=== PATIENT | female | born 1975 | race Caucasian/White ===

== ENCOUNTER 2016-10-11 15:31 | Emergency (ER) | payer SELFPAY ==
[~2016-10-11] VITALS: Ht 180.3 cm; Wt 104.3 kg
[~2016-10-11 15:31] MED LIST: ADDERALL20 MG PO; ASPIRIN ADULT L81 M2 PO; ATIVAN0.5 MG PO; ATIVAN1 MG PO; BACTRIM DS 8001 TA1 PO; CELEXA20 MG PO; CIPRO500 MG PO; CIPROFLOXACIN500 MG PO; CLARITIN10 MG PO; DOXYCYCLINE100 MG PO; IMDUR SA30 MG PO; MOTRIN800 MG PO; NKHM; NORVASC10 MG PO; PREV ADMIT HOME MEDS; PROTONIX TR40 M1 PO; PYRIDIUM200 MG PO; SEPTRA DS1 TAB PO; ULTRAM50 MG PO; ZESTRIL10 MG PO; ZITHROMAX Z PA250 MG PO; Zestril,Prinivi40 MG PO; [UNRECOGNIZED DRUG - REMARK] PO
[2016-10-11 16:11] LABS: BILIRUBIN NEGATIVE (NEGATIVE); BLOOD 3+ (NEGATIVE); CLARITY SL CLOUDY (CLEAR); COLOR YELLOW (YELLOW); GLUCOSE NEGATIVE (NEGATIVE); KETONE NEGATIVE (NEGATIVE); LEUKO ESTERASE 1+ (NEGATIVE); NITRITE NEGATIVE (NEGATIVE); PH 5.5 (5.0-9.0); PROTEIN 1+ (NEGATIVE); SPECIFIC GRAVITY 1.025 (1.005-1.030); UROBILINOGEN 0.2 E.U./dl (0.2-1.0)
[2016-10-11 16:16] LABS: BASO % 0.2 % (0.0-1.0); EOS # 0.1 10*3/uL (0.0-0.4); EOS % 1.9 % (1.0-4.0); HEMATOCRIT 45.1 % (37.0-47.0); HEMOGLOBIN 16.1 g/dl (12.0-16.0); LYMPH # 1.4 10*3/uL (1.3-4.4); LYMPH % 32.1 % (27.0-41.0); MEAN CELL VOLUME 86.4 fl (81.0-99.0); MEAN CORPUSCULAR HGB 30.8 pg (27.0-31.0); MEAN CORPUSCULAR HGB CONC 35.7 g/dl (33.0-37.0); MEAN PLATELET VOLUME 8.2 fl (9.6-12.3); MONO # 0.3 10*3/uL (0.1-1.0); MONO % 7.9 % (3.0-9.0); NEUT # 2.4 10*3/uL (2.3-7.9); NEUT % 57.7 % (47.0-73.0); PLATELET COUNT AUTOMATED 206 10*3/uL (130-400); RED BLOOD COUNT 5.22 10*6/uL (4.10-5.10); RED CELL DISTRI WIDTH 12.4 % (0-14.5); WHITE BLOOD COUNT 4.2 10*3/uL (4.8-10.8)
[2016-10-11 16:26] LABS: BACTERIA 2+; EPITHELIAL CELLS 20-25; MUCOUS TRACE; URINE REFLEX COMMENT YES (NO); WBC 21-30 wbc/hpf (0-5)
[2016-10-11 16:34] LABS: ALBUMIN 3.5 gm/dl (3.1-4.5); ALKALINE PHOSPHATASE 62 U/L (45-117); BILIRUBIN, TOTAL 0.4 mg/dl (0.2-1.0); BUN 21 mg/dl (7-24); CARBON DIOXIDE 28 mmol/L (21-32); CHLORIDE 107 mmol/L (98-107); EST GLOM FILT AFRICAN AMERICAN > 60 ml/min; GLUCOSE 86 mg/dL (65-99); POTASSIUM 3.8 mmol/L (3.5-5.1); SGOT/AST 61 IU/L (3-35); SGPT/ALT 75 U/L (12-78); SODIUM 143 mmol/L (136-145); TOTAL PROTEIN 7.5 gm/dL (6.4-8.2)
[2016-10-11 16:54] LABS: URINE AMPHETAMINES < 1000 (1000ng/ml); URINE BARBITURATES < 200 (200ng/ml); URINE COCAINE > 300 (300ng/ml)
[2016-10-11] MEDS ORDERED: XANAX0.25 MG PO (17:53)
[2016-10-11] MEDS ORDERED: KETOROLAC10 MG PO (17:53)
[2016-10-11] MEDS ORDERED: MACROBID100 M1 PO (17:56)
== END 2016-10-11 17:56 | disposition home or self-care (01) ==
LOC: ED 15:31
PROVIDERS: Registered Nurse
DX: N30.01 Acute cystitis with hematuria (principal); N83.201 Unspecified ovarian cyst, right side; Q61.3 Polycystic kidney, unspecified; I10 Essential (primary) hypertension; Z98.51 Tubal ligation status; Z98.890 Other specified postprocedural states; Z88.0 Allergy status to penicillin; Z79.899 Other long term (current) drug therapy; Z86.73 Personal history of transient ischemic attack (TIA), and cerebral infarction without residual deficits

== ENCOUNTER 2018-09-04 16:51 | Inpatient (IN) | payer SELFPAY ==
[~2018-09-04] VITALS: Ht 180.3 cm; Wt 108.2 kg
--- NOTE | ~2018-09-04 | EKG ---
[place], [place] ELECTROCARDIOGRAM REPORT NAME: JING MANUEL UNIT #: [id number] ROOM: 412 DOCTOR: KELLEN DRAFT REPORT BIRTHDATE: [birth year] [facility] Test Date: 2018-09-04 Test Time: 17:38:07 Pat Name: JING MANUEL Department: Room: 412 Gender: F Meat Trimmer: Mile Gonzalez : 1975 Requested By: MATTHEW COUCH Order Number: [id number] Reading MD: Radha Santiago MD Measurements Intervals [place] Rate: 106 P: 42 [place]: 171 QRS: -5 QRSD: 88 T: 8 QT: 336 QTc: 447 Interpretive Statements Sinus tachycardia Anteroseptal infarct, age indeterminate Compared to ECG 12/26/2017 14:16:35 Sinus rhythm no longer present Myocardial infarct finding still present Electronically Signed On 09-05-2018 7:06:32 PDT by Radha Santiago MD CM:EKGRPT:ELECTROCARDIOGRAM REPORT [id number] MATTHEW EL DRAFT REPORT MATTHEW COUCH DO
[~2018-09-04 16:51] MED LIST changes: +CLINDAMYCIN HC300 MG PO; +KETOROLAC10 MG PO; +MACROBID100 M1 PO; +VITAMIN D50000 UNIT PO; +XANAX0.25 MG PO; +XARE20MG PO
[2018-09-04 16:53] VITALS: BP 189/127
[2018-09-04 17:15] VITALS: BP 151/92
[2018-09-04 17:52] LABS: ACT PARTIAL THROMBO TIME 22.8 SECONDS (20.8-31.5); INTERNATIONAL NORM RATIO 0.9 (2.0-3.5)
[2018-09-04 17:58] LABS: ALBUMIN 3.6 gm/dl (3.1-4.5); ALKALINE PHOSPHATASE 58 U/L (45-117); BUN 9 mg/dl (7-24); CHLORIDE 110 mmol/L (98-107); CREATININE 0.79 mg/dL (0.55-1.02); LIPASE 310 U/L (73-393); POTASSIUM 3.3 mmol/L (3.5-5.1); SGOT/AST 47 IU/L (3-35); SGPT/ALT 45 U/L (12-78); SODIUM 142 mmol/L (136-145); TOTAL PROTEIN 7.4 gm/dL (6.4-8.2)
[2018-09-04 18:01] LABS: BASO % 0.6 % (0.0-1.0); EOS # 0.5 10*3/uL (0.0-0.4); EOS % 8.8 % (1.0-4.0); HEMOGLOBIN 16.4 g/dl (12.0-16.0); LYMPH # 1.5 10*3/uL (1.3-4.4); LYMPH % 27.4 % (27.0-41.0); MEAN CELL VOLUME 84.9 fl (81.0-99.0); MEAN CORPUSCULAR HGB 30.9 pg (27.0-31.0); MEAN CORPUSCULAR HGB CONC 36.4 g/dl (33.0-37.0); MEAN PLATELET VOLUME 8.6 fl (9.6-12.3); MONO # 0.5 10*3/uL (0.1-1.0); MONO % 8.5 % (3.0-9.0); NEUT % 54.1 % (47.0-73.0); PLATELET COUNT AUTOMATED 234 10*3/uL (130-400); RED CELL DISTRI WIDTH 12.5 % (0-14.5); WHITE BLOOD COUNT 5.4 10*3/uL (4.8-10.8)
[2018-09-04 18:04] LABS: BETA-HCG, QUANT < 1.0 mIU/mL (1-3)
--- NOTE | 2018-09-04 18:07 | NUR ---
ETOH RESULT OF 375.
[2018-09-04 18:24] VITALS: BP 151/105
--- NOTE | 2018-09-04 18:45 | NUR ---
PHONE NUMBER FOR PARENT LASHA/ [phone]. WANTS CALLED FOR ANY CONCERN. DEEDEE GOLDSMITH RN.
[2018-09-04 18:50] LABS: BILIRUBIN NEGATIVE (NEGATIVE); BLOOD TRACE-INTACT (NEGATIVE); CLARITY CLEAR (CLEAR); COLOR STRAW (YELLOW); GLUCOSE NEGATIVE (NEGATIVE); KETONE NEGATIVE (NEGATIVE); LEUKO ESTERASE NEGATIVE (NEGATIVE); NITRITE NEGATIVE (NEGATIVE); PH 5.5 (5.0-9.0); SPECIFIC GRAVITY <= 1.005 (1.005-1.030); UROBILINOGEN 0.2 E.U./dl (0.2-1.0)
[2018-09-04 19:01] LABS: URINE AMPHETAMINES < 1000 (1000ng/ml); URINE BARBITURATES < 200 (200ng/ml); URINE BENZODIAZEPINES < 200 (200ng/ml); URINE CANNABINOIDS (THC) < 50 (50ng/ml); URINE COCAINE < 300 (300ng/ml); URINE METHADONE < 300 (300ng/ml); URINE OPIATES < 300 (300ng/ml); URINE PHENCYCLIDINE < 25 (25ng/ml)
[2018-09-04 19:08] LABS: BACTERIA TRACE
[2018-09-04 20:13] VITALS: BP 170/82
--- NOTE | 2018-09-04 20:13 | NUR ---
A 43, admitted to , under the services of BERNARDINO Villalobos DO with a diagnosis of ALCOOHOL DEPENDANCE ALCOHOL WITHDRAWAL. Chief complaint is WANTS TO BE IN [facility] V[facility] PROGRAM. Patient arrived via stretcher from ER. Monitor applied. Initial assessment completed. Vital signs taken and recorded. BERNARDINO VILLALOBOS DO notified of admission to the unit. Orders received. See assessment for past medical history, medications and allergies. Patient and/or family oriented to unit. [facility] visitation policy reviewed. Clothing/patient valuable form completed. DESEAN HERNANDEZ
[2018-09-05] VITALS: BP 162/108
--- NOTE | 2018-09-05 01:00 | NUR ---
NOTIFIED DR. BANDA MANUAL BP162/108 WATCHING PATIENT. NO FURTHER ORDERS.
--- NOTE | 2018-09-05 01:24 | NUR ---
PT. VISIBLY TREMORING, LIPS QUIVERING PT. VERY ANXIOUS ALMOST CRYING. C/O HEADACHE MOTRIN GIVEN FOR PAIN RATED "9", ROBAIXN GIVEN FOR MUSCLE ACHES, VISTARIL GIVEN FOR ANXIETY, ATIVAN GIVEN PER ORDER FOR DVT SYMPTOMS.
--- NOTE | 2018-09-05 02:20 | NUR ---
PT. SLEEPING SNORING NO VISIBLE TREMORS AT THIS TIME.
--- NOTE | 2018-09-05 03:37 | NUR ---
24 HR chart check completed.
[2018-09-05 06:25] VITALS: BP 160/108
--- NOTE | 2018-09-05 06:30 | NUR ---
NOTIFIED OF PATIENT STILL HAVING ELEVATED BP AND NO NEW ORDERS AT THIS TIME.
[2018-09-05 06:35] LABS: BUN 12 mg/dl (7-24); CHLORIDE 113 mmol/L (98-107); CREATININE 0.76 mg/dL (0.55-1.02); POTASSIUM 3.8 mmol/L (3.5-5.1); SODIUM 144 mmol/L (136-145)
[2018-09-05 08:00] VITALS: BP 168/110
--- NOTE | 2018-09-05 12:30 | NUR ---
PATIENT IS SHAKING. HEARTRATE IS INCREASING INTO THE 140S AT REST. ATIVAN 2MG IV GIVEN.
--- NOTE | 2018-09-05 13:30 | NUR ---
PATIENT SLEEPING. NO SIGNS OF SHAKING. HEARTRATE IS 110.
[2018-09-05 14:00] VITALS: BP 160/99
[2018-09-05 16:00] VITALS: BP 145/99
--- NOTE | 2018-09-05 18:35 | NUR ---
PATIENT COMPLAINING OF CHEST TIGHTNESS AND SHORTNESS OF BREATH. HEART RATE IN THE 130S. ATIVAN 2MG IV GIVEN FOR WITHDRAWL SYMPTOMS.
[2018-09-05 20:00] VITALS: BP 123/89
--- NOTE | 2018-09-05 23:37 | NUR ---
PATIENT MEDICATED WITH ATIVAN PER PRN ORDER AND PATIENT REQUEST FOR C/O ANXIETY, FINE TREMORS AND SWEATS. SEE EMAR. REINFORCED USE OF CALL LIGHT.
--- NOTE | 2018-09-05 23:41 | NUR ---
DR. SOSA UPDATED ON HR OF 106 AND MANUAL BP OF 140/100. WILL CONTINUE TO MONITOR.
[2018-09-06] VITALS: BP 140/100
[2018-09-06 02:00] VITALS: BP 134/78
--- NOTE | 2018-09-06 02:00 | NUR ---
PATIENT RESTING QUIETLY. NO S/S OF DISTRESS NOTED
--- NOTE | 2018-09-06 03:44 | NUR ---
24 HR chart check completed.
[2018-09-06 06:54] LABS: BUN 19 mg/dl (7-24); CHLORIDE 107 mmol/L (98-107); CREATININE 0.74 mg/dL (0.55-1.02); POTASSIUM 3.6 mmol/L (3.5-5.1); SODIUM 140 mmol/L (136-145)
[2018-09-06 08:00] VITALS: BP 122/90
--- NOTE | 2018-09-06 09:49 | NUR ---
24 HR chart check completed.
--- NOTE | 2018-09-06 10:14 | NUR ---
PRN ATIVAN GIVEN FOR ANXIETY. PATIENT TEARFUL.
--- NOTE | 2018-09-06 11:00 | NUR ---
DENIES ANXIETY. ATIVAN EFFECTIVE.
--- NOTE | 2018-09-06 11:30 | NUR ---
SCHEDULED LIBRIUM GIVEN.
[2018-09-06 12:00] VITALS: BP 127/87; BP 130/64
--- NOTE | 2018-09-06 12:12 | NUR ---
NO SIGNS OF DT'S. LIBRIUM EFFECTIVE.
[2018-09-06 16:00] VITALS: BP 123/86
--- NOTE | 2018-09-06 17:06 | NUR ---
ATIVAN GIVEN FOR ANXIETY. PATIENT CRYING. FEELS LIKE SHE IS HAVING A PANIC ATTACK.
--- NOTE | 2018-09-06 17:45 | NUR ---
PATIENT STATES SHE FEELS MUCH BETTER AFTER ATIVAN.
[2018-09-06 20:00] VITALS: BP 124/87
--- NOTE | 2018-09-06 20:35 | NUR ---
MEDICATED WITH PRN ATIVAN FOR C/O ANXIOUSNESS AND TREMORS. WILL MONITOR
[2018-09-07] VITALS: BP 130/82
--- NOTE | 2018-09-07 01:00 | NUR ---
MEDICATED WITH PRN ATIVAN FOR C/O TREMORS AND ANXIOUSNESS. WILL MONITOR
--- NOTE | 2018-09-07 01:00 | NUR ---
IV started left hand with #22 angiocath after 1 attempts. The IV site was prepped with Chloraprep. Heparin lock attached. Sterile dressing applied. Patient tolerated precedure well. Procedure performed according to [facility] policy & procedure. BHARGAV PARK
--- NOTE | 2018-09-07 01:00 | NUR ---
Hep Lock discontinued RIGHT HAND. Site symptomatic, LEAKING AT SITE. Pressure applied. Sterile dressing applied. BHARGAV PARK
[2018-09-07 06:09] LABS: BASO % 0.4 % (0.0-1.0); EOS # 0.5 10*3/uL (0.0-0.4); EOS % 9.1 % (1.0-4.0); HEMATOCRIT 43.3 % (37.0-47.0); LYMPH # 1.2 10*3/uL (1.3-4.4); LYMPH % 22.3 % (27.0-41.0); MEAN CORPUSCULAR HGB 30.5 pg (27.0-31.0); MEAN CORPUSCULAR HGB CONC 34.6 g/dl (33.0-37.0); MEAN PLATELET VOLUME 8.9 fl (9.6-12.3); MONO # 0.3 10*3/uL (0.1-1.0); MONO % 6.1 % (3.0-9.0); NEUT # 3.3 10*3/uL (2.3-7.9); NEUT % 61.5 % (47.0-73.0); PLATELET COUNT AUTOMATED 158 10*3/uL (130-400); RED BLOOD COUNT 4.92 10*6/uL (4.10-5.10); RED CELL DISTRI WIDTH 12.6 % (0-14.5); WHITE BLOOD COUNT 5.4 10*3/uL (4.8-10.8)
[2018-09-07 08:00] VITALS: BP 110/70
--- NOTE | 2018-09-07 09:44 | NUR ---
MEDICATED WITH PRN ATIVAN PER ORDER AND REQUEST.
[2018-09-07 12:00] VITALS: BP 130/88
--- NOTE | 2018-09-07 12:50 | NUR ---
MEDICATED WITH PRN ATIVAN PER ORDER AND REQUEST.
--- NOTE | 2018-09-07 15:47 | NUR ---
MEDICATED WITH ATIVAN PER ORDER AND REQUEST.
[2018-09-07 16:00] VITALS: BP 127/99
--- NOTE | 2018-09-07 18:13 | NUR ---
MEDICATED WITH PRN VISTARIL AND ROBAXIN PER ORDERS.
--- NOTE | 2018-09-07 19:06 | NUR ---
ROBAXIN AND VISTARIL HELPED.
--- NOTE | 2018-09-07 19:33 | NUR ---
MEDICATED WITH PRN TRAZADONE FOR INSOMNIA AND PRN ATIVAN FOR C/O ANXIOUSNESS AND TREMORS. WILL MONITOR
[2018-09-07 20:00] VITALS: BP 136/96
--- NOTE | 2018-09-07 21:42 | NUR ---
PATIENT RESTING IN BED WITH EYES CLOSED. RESPS EASY AND REGULAR. MEDICATION SEEMS EFFECTIVE
[2018-09-08] VITALS: BP 124/94
--- NOTE | 2018-09-08 07:48 | NUR ---
MEDICATED WITH IV ATIVAN PER ORDER AND REQUEST.
[2018-09-08 08:00] VITALS: BP 104/76
--- NOTE | 2018-09-08 11:13 | NUR ---
[place] STAFF PROVIDED PATIENT WITH AFTERCARE RESOURCES IN HER LOCAL AREA. DUE TO NOT HAVING INSURANCE, PATIENT DOES NOT MEET [facility] CRITERIA. HUBER LORENZO B.A. BALE OPENER
--- NOTE | 2018-09-08 11:47 | NUR ---
MEDICATED WITH PRN VISTARIL PER ORDER.
[2018-09-08 12:00] VITALS: BP 126/95
--- NOTE | 2018-09-08 14:56 | NUR ---
EVELIO EARLIER HELPED.
[2018-09-08] MEDS ORDERED: ATARAX,VISTARIL50 MG PO (15:20)
[2018-09-08] MEDS ORDERED: LISINOPRIL10 M1 PO (15:20)
--- NOTE | 2018-09-08 15:30 | NUR ---
PATIENT TO GO HOME.
--- NOTE | 2018-09-08 15:52 | NUR ---
Discharge instructions reviewed with patient/family. Patient receptive and verbalizes understanding. Follow-up care arranged. Written instructions given to patient/family. JING LABOY
[2018-09-26] MEDS ORDERED: ATARAX,VISTARIL50 MG PO (00:39)
[2018-09-27] MEDS ORDERED: ATARAX,VISTARIL50 MG PO (12:51)
[2018-09-27] MEDS ORDERED: LISINOPRIL10 M1 PO (12:51)
== END 2018-09-08 15:52 | disposition home or self-care (01) | DRG 897 ==
LOC: ED 16:51 → EDHOLD 17:21 → 4E 17:21
PROVIDERS: Emergency Medicine; Student in an Organized Health Care Education/Training Program; ADMIT Internal Medicine
DX: F10.929 Alcohol use, unspecified with intoxication, unspecified (principal); R65.10 Systemic inflammatory response syndrome (SIRS) of non-infectious origin without acute organ dysfunction; Q61.3 Polycystic kidney, unspecified; D75.1 Secondary polycythemia; E87.6 Hypokalemia; E83.41 Hypermagnesemia; I10 Essential (primary) hypertension; B19.20 Unspecified viral hepatitis C without hepatic coma; R74.0 Nonspecific elevation of levels of transaminase and lactic acid dehydrogenase [LDH]; F17.210 Nicotine dependence, cigarettes, uncomplicated; F14.90 Cocaine use, unspecified, uncomplicated; F11.90 Opioid use, unspecified, uncomplicated; Z80.0 Family history of malignant neoplasm of digestive organs; Z88.0 Allergy status to penicillin; Z86.73 Personal history of transient ischemic attack (TIA), and cerebral infarction without residual deficits; I25.2 Old myocardial infarction; Z71.6 Tobacco abuse counseling; Z98.891 History of uterine scar from previous surgery; Z98.51 Tubal ligation status; Z72.89 Other problems related to lifestyle; Z82.49 Family history of ischemic heart disease and other diseases of the circulatory system; Z83.3 Family history of diabetes mellitus; Z82.3 Family history of stroke

== ENCOUNTER → 2018-09-12 | Outpatient (CLI) | payer SELFPAY ==
[~2018-09-12] MED LIST changes: +ATARAX,VISTARIL50 MG PO; +LISINOPRIL10 M1 PO
== END | disposition home or self-care (01) ==
LOC: RESCLI 03:26
DX: I10 Essential (primary) hypertension (principal); R00.0 Tachycardia, unspecified; F41.1 Generalized anxiety disorder; Q61.3 Polycystic kidney, unspecified; F10.10 Alcohol abuse, uncomplicated; B18.2 Chronic viral hepatitis C; F32.2 Major depressive disorder, single episode, severe without psychotic features; Z76.89 Persons encountering health services in other specified circumstances

== ENCOUNTER → 2019-03-23 | Outpatient (CLI) | payer OTHER ==
[2019-03-23 09:30] LABS: HEMATOCRIT 41.8 % (37.0-47.0); HEMOGLOBIN 14.8 g/dl (12.0-16.0); MEAN CELL VOLUME 86.9 fl (81.0-99.0); MEAN CORPUSCULAR HGB 30.8 pg (27.0-31.0); MEAN CORPUSCULAR HGB CONC 35.4 g/dl (33.0-37.0); MEAN PLATELET VOLUME 8.6 fl (9.6-12.3); RED BLOOD COUNT 4.81 10*6/uL (4.10-5.10); WHITE BLOOD COUNT 4.8 10*3/uL (4.8-10.8)
[2019-03-23 10:07] LABS: ALBUMIN 3.7 gm/dl (3.1-4.5); BUN 24 mg/dl (7-24); CHLORIDE 104 mmol/L (98-107); POTASSIUM 3.4 mmol/L (3.5-5.1); SODIUM 137 mmol/L (136-145)
[2019-03-23 10:20] LABS: ALKALINE PHOSPHATASE 67 U/L (45-117); CHOLESTEROL 196 mg/dL (<200); CREATININE 0.85 mg/dL (0.55-1.02); HDL CHOLESTEROL 133 mg/dl (40-60); LDL CHOLESTEROL 52 mg/dL (9-159); SGOT/AST 30 IU/L (3-35); SGPT/ALT 35 U/L (12-78); TOTAL PROTEIN 7.7 gm/dL (6.4-8.2); TRIGLYCERIDES 53 mg/dl (<150); VLDL CHOLESTEROL 11 mg/dL (6-40)
== END | disposition home or self-care (01) ==
LOC: LAB 08:59
PROVIDERS: Registered Nurse Flight
DX: Z13.29 Encounter for screening for other suspected endocrine disorder (principal); I10 Essential (primary) hypertension; Z86.73 Personal history of transient ischemic attack (TIA), and cerebral infarction without residual deficits

== ENCOUNTER 2019-07-22 03:35 | Emergency (ER) | payer BC, OTHER ==
[~2019-07-22] VITALS: Ht 180.3 cm; Wt 108.9 kg
[2019-07-22 04:11] LABS: BASO % 0.4 % (0.0-1.0); EOS # 0.4 10*3/uL (0.0-0.4); EOS % 7.6 % (1.0-4.0); HEMATOCRIT 41.5 % (37.0-47.0); HEMOGLOBIN 13.9 g/dl (12.0-16.0); LYMPH # 1.3 10*3/uL (1.3-4.4); LYMPH % 22.6 % (27.0-41.0); MEAN CORPUSCULAR HGB 30.5 pg (27.0-31.0); MEAN CORPUSCULAR HGB CONC 33.5 g/dl (33.0-37.0); MEAN PLATELET VOLUME 8.5 fl (9.6-12.3); MONO # 0.5 10*3/uL (0.1-1.0); MONO % 9.6 % (3.0-9.0); NEUT # 3.3 10*3/uL (2.3-7.9); NEUT % 59.1 % (47.0-73.0); PLATELET COUNT AUTOMATED 195 10*3/uL (130-400); RED BLOOD COUNT 4.56 10*6/uL (4.10-5.10); RED CELL DISTRI WIDTH 13.9 % (0-14.5); WHITE BLOOD COUNT 5.6 10*3/uL (4.8-10.8)
[2019-07-22 04:27] LABS: ALBUMIN 3.1 gm/dl (3.1-4.5); ALKALINE PHOSPHATASE 86 U/L (45-117); BUN 30 mg/dl (7-24); CHLORIDE 104 mmol/L (98-107); CREATININE 0.85 mg/dL (0.55-1.02); LIPASE 269 U/L (73-393); SGOT/AST 26 IU/L (3-35); SGPT/ALT 35 U/L (12-78); SODIUM 139 mmol/L (136-145)
[2019-07-22 05:16] LABS: BILIRUBIN NEGATIVE (NEGATIVE); BLOOD NEGATIVE (NEGATIVE); CLARITY CLEAR (CLEAR); COLOR YELLOW (YELLOW); GLUCOSE NEGATIVE (NEGATIVE); KETONE NEGATIVE (NEGATIVE); LEUKO ESTERASE NEGATIVE (NEGATIVE); NITRITE NEGATIVE (NEGATIVE); SPECIFIC GRAVITY 1.015 (1.005-1.030); UROBILINOGEN 0.2 E.U./dl (0.2-1.0)
[2019-07-22 05:20] LABS: WBC 0-2 wbc/hpf (0-5)
== END 2019-07-22 08:28 | disposition home or self-care (01) ==
LOC: ED 03:35
PROVIDERS: Emergency Medicine
DX: R10.12 Left upper quadrant pain (principal); R11.2 Nausea with vomiting, unspecified; I25.2 Old myocardial infarction; I12.9 Hypertensive chronic kidney disease with stage 1 through stage 4 chronic kidney disease, or unspecified chronic kidney disease; N18.3 Chronic kidney disease, stage 3 (moderate); R56.9 Unspecified convulsions; Z88.0 Allergy status to penicillin; Z79.899 Other long term (current) drug therapy; Z86.73 Personal history of transient ischemic attack (TIA), and cerebral infarction without residual deficits

== ENCOUNTER 2019-11-15 20:04 | Emergency (ER) | payer BC, OTHER ==
[~2019-11-15] VITALS: Ht 180.3 cm; Wt 108.9 kg
[2019-11-15 20:35] LABS: BASO % 0.4 % (0.0-1.0); EOS # 0.4 10*3/uL (0.0-0.4); EOS % 8.3 % (1.0-4.0); HEMATOCRIT 43.7 % (37.0-47.0); LYMPH # 1.7 10*3/uL (1.3-4.4); LYMPH % 36.2 % (27.0-41.0); MEAN CELL VOLUME 88.1 fl (81.0-99.0); MEAN CORPUSCULAR HGB 29.8 pg (27.0-31.0); MEAN CORPUSCULAR HGB CONC 33.9 g/dl (33.0-37.0); MEAN PLATELET VOLUME 8.6 fl (9.6-12.3); MONO # 0.4 10*3/uL (0.1-1.0); MONO % 7.9 % (3.0-9.0); NEUT # 2.1 10*3/uL (2.3-7.9); NEUT % 46.8 % (47.0-73.0); PLATELET COUNT AUTOMATED 230 10*3/uL (130-400); RED BLOOD COUNT 4.96 10*6/uL (4.10-5.10); WHITE BLOOD COUNT 4.6 10*3/uL (4.8-10.8)
[2019-11-15 20:50] LABS: ALBUMIN 3.3 gm/dl (3.1-4.5); ALKALINE PHOSPHATASE 55 U/L (45-117); BUN 21 mg/dl (7-24); CHLORIDE 115 mmol/L (98-107); CREATININE 0.97 mg/dL (0.55-1.02); POTASSIUM 3.7 mmol/L (3.5-5.1); SGOT/AST 37 IU/L (3-35); SGPT/ALT 66 U/L (12-78); SODIUM 145 mmol/L (136-145); TOTAL PROTEIN 7.1 gm/dL (6.4-8.2)
[2019-11-15 21:53] LABS: BILIRUBIN NEGATIVE (NEGATIVE); BLOOD 1+ (NEGATIVE); CLARITY CLEAR (CLEAR); COLOR YELLOW (YELLOW); GLUCOSE NEGATIVE (NEGATIVE); KETONE NEGATIVE (NEGATIVE); NITRITE NEGATIVE (NEGATIVE); SPECIFIC GRAVITY 1.025 (1.005-1.030); UROBILINOGEN 0.2 E.U./dl (0.2-1.0)
[2019-11-15 21:54] LABS: BACTERIA 4+; EPITHELIAL CELLS TNTC; LEUKO ESTERASE 2+ (NEGATIVE); MUCOUS 1+; URIC ACID CRYSTALS 1+
[2019-11-15] MEDS ORDERED: KEFLEX500 M1 PO (22:03)
== END 2019-11-15 22:03 | disposition home or self-care (01) ==
LOC: ED 20:04
PROVIDERS: Physician Assistant
DX: N39.0 Urinary tract infection, site not specified (principal); Z72.0 Tobacco use

== ENCOUNTER 2019-12-31 10:12 | Emergency (ER) | payer BC, OTHER ==
[~2019-12-31] VITALS: Wt 108.9 kg
[~2019-12-31 10:12] MED LIST changes: +KEFLEX500 M1 PO
[2019-12-31] MEDS ORDERED: NORCO 5-325 TA1 EACH PO (12:06)
== END 2019-12-31 12:18 | disposition home or self-care (01) ==
LOC: ED 10:12
DX: M72.2 Plantar fascial fibromatosis (principal); Z72.0 Tobacco use

== ENCOUNTER 2020-03-29 19:58 | Emergency (ER) | payer BC, OTHER ==
[~2020-03-29 19:58] MED LIST changes: +NORCO 5-325 TA1 EACH PO
[2020-03-29 20:38] LABS: BASO % 0.5 % (0.0-1.0); EOS # 0.3 10*3/uL (0.0-0.4); EOS % 4.4 % (1.0-4.0); HEMATOCRIT 45.6 % (37.0-47.0); LYMPH % 35.5 % (27.0-41.0); MEAN CELL VOLUME 90.5 fl (81.0-99.0); MEAN CORPUSCULAR HGB 30.8 pg (27.0-31.0); MEAN PLATELET VOLUME 8.4 fl (9.6-12.3); MONO # 0.6 10*3/uL (0.1-1.0); MONO % 10.1 % (3.0-9.0); NEUT # 2.8 10*3/uL (2.3-7.9); NEUT % 48.8 % (47.0-73.0); PLATELET COUNT AUTOMATED 239 10*3/uL (130-400); RED BLOOD COUNT 5.04 10*6/uL (4.10-5.10); RED CELL DISTRI WIDTH 12.2 % (0-14.5); WHITE BLOOD COUNT 5.6 10*3/uL (4.8-10.8)
[2020-03-29 20:58] LABS: ALBUMIN 3.3 gm/dl (3.1-4.5); ALKALINE PHOSPHATASE 70 U/L (45-117); B-hCG (QUALITATIVE) NEGATIVE (NEGATIVE); BUN 19 mg/dl (7-24); CHLORIDE 110 mmol/L (98-107); CREATININE 0.89 mg/dL (0.55-1.02); POTASSIUM 4.4 mmol/L (3.5-5.1); SGOT/AST 70 IU/L (3-35); SGPT/ALT 96 U/L (12-78); SODIUM 141 mmol/L (136-145); TOTAL PROTEIN 7.7 gm/dL (6.4-8.2)
[2020-03-29 21:03] LABS: TROPONIN I < 0.015 ng/ml (<0.045)
[2020-03-29 21:05] LABS: ACETAMINOPHEN (TYLENOL) < 5.0 ug/ml (10-30)
[2020-03-29 21:16] LABS: INTERNATIONAL NORM RATIO 0.9 (2.0-3.5)
[2020-03-29 23:46] LABS: URINE AMPHETAMINES < 1000 (1000ng/ml); URINE BARBITURATES < 200 (200ng/ml); URINE BENZODIAZEPINES < 200 (200ng/ml); URINE CANNABINOIDS (THC) < 50 (50ng/ml); URINE COCAINE < 300 (300ng/ml); URINE METHADONE < 300 (300ng/ml); URINE OPIATES < 300 (300ng/ml)
[2020-03-29 23:47] LABS: URINE PHENCYCLIDINE < 25 (25ng/ml)
[2020-03-30] MEDS ORDERED: ATIVAN1 MG PO (12:49)
== END 2020-03-30 12:59 | disposition home or self-care (01) ==
LOC: ED 19:58
PROVIDERS: Physician Assistant
DX: F10.129 Alcohol abuse with intoxication, unspecified (principal); I10 Essential (primary) hypertension; I25.2 Old myocardial infarction; Z79.899 Other long term (current) drug therapy; Y90.9 Presence of alcohol in blood, level not specified

== ENCOUNTER 2020-03-31 17:27 | Emergency (ER) | payer BC, OTHER ==
[~2020-03-31] VITALS: Ht 170.1 cm; Wt 102.1 kg
[2020-03-31 17:43] LABS: BASO % 0.6 % (0.0-1.0); EOS # 0.2 10*3/uL (0.0-0.4); EOS % 3.4 % (1.0-4.0); HEMATOCRIT 42.9 % (37.0-47.0); LYMPH # 1.6 10*3/uL (1.3-4.4); LYMPH % 22.6 % (27.0-41.0); MEAN CELL VOLUME 88.8 fl (81.0-99.0); MEAN CORPUSCULAR HGB 30.8 pg (27.0-31.0); MEAN CORPUSCULAR HGB CONC 34.7 g/dl (33.0-37.0); MEAN PLATELET VOLUME 8.5 fl (9.6-12.3); MONO # 0.8 10*3/uL (0.1-1.0); MONO % 11.2 % (3.0-9.0); NEUT # 4.3 10*3/uL (2.3-7.9); NEUT % 61.6 % (47.0-73.0); PLATELET COUNT AUTOMATED 204 10*3/uL (130-400); RED BLOOD COUNT 4.83 10*6/uL (4.10-5.10); RED CELL DISTRI WIDTH 11.9 % (0-14.5)
[2020-03-31 17:59] LABS: ALBUMIN 3.5 gm/dl (3.1-4.5); ALKALINE PHOSPHATASE 77 U/L (45-117); BUN 20 mg/dl (7-24); CHLORIDE 109 mmol/L (98-107); CREATININE 0.93 mg/dL (0.55-1.02); SGOT/AST 68 IU/L (3-35); SGPT/ALT 91 U/L (12-78); SODIUM 141 mmol/L (136-145); TOTAL PROTEIN 7.7 gm/dL (6.4-8.2)
[2020-03-31 18:03] LABS: ACETAMINOPHEN (TYLENOL) < 5.0 ug/ml (10-30); POTASSIUM 3.4 mmol/L (3.5-5.1)
[2020-03-31 18:48] LABS: ACT PARTIAL THROMBO TIME 26.2 SECONDS (20.0-32.1); BETA-HCG, QUANT < 1.0 mIU/mL (1-3); INTERNATIONAL NORM RATIO 0.9 (2.0-3.5); TROPONIN I < 0.015 ng/ml (<0.045)
[2020-03-31 19:31] LABS: BILIRUBIN Negative (Negative); BLOOD Negative (Negative); CLARITY Clear (Clear); COLOR Yellow (Yellow); GLUCOSE Negative (Negative); KETONE Negative (Negative); LEUKO ESTERASE Negative (Negative); NITRITE Negative (Negative); PH 6.5 (4.5-8.0); SPECIFIC GRAVITY <= 1.005 (1.001-1.030); UROBILINOGEN 0.2 E.U./dl (0.0-1.0)
[2020-03-31 19:39] LABS: URINE AMPHETAMINES < 1000 (1000ng/ml); URINE BARBITURATES < 200 (200ng/ml); URINE BENZODIAZEPINES < 200 (200ng/ml); URINE CANNABINOIDS (THC) < 50 (50ng/ml); URINE COCAINE < 300 (300ng/ml); URINE METHADONE < 300 (300ng/ml); URINE OPIATES < 300 (300ng/ml)
[2020-03-31 19:42] LABS: URINE PHENCYCLIDINE < 25 (25ng/ml)
[2020-03-31 19:58] LABS: BACTERIA TRACE; RBC 0-2 rbc/hpf (0-2)
== END 2020-03-31 23:48 | disposition home or self-care (01) ==
LOC: ED 17:27
PROVIDERS: Emergency Medicine
DX: F10.129 Alcohol abuse with intoxication, unspecified (principal)

== ENCOUNTER 2020-08-06 22:43 | Emergency (ER) | payer SELFPAY ==
[~2020-08-06] VITALS: Ht 180.3 cm; Wt 113.4 kg
[2020-08-06 23:15] LABS: BASO % 0.5 % (0.0-1.0); EOS # 0.4 10*3/uL (0.0-0.4); EOS % 7.6 % (1.0-4.0); HEMATOCRIT 40.5 % (37.0-47.0); LYMPH # 1.8 10*3/uL (1.3-4.4); LYMPH % 31.4 % (27.0-41.0); MEAN CORPUSCULAR HGB 30.9 pg (27.0-31.0); MEAN CORPUSCULAR HGB CONC 34.3 g/dl (33.0-37.0); MEAN PLATELET VOLUME 8.2 fl (9.6-12.3); MONO # 0.6 10*3/uL (0.1-1.0); MONO % 9.7 % (3.0-9.0); NEUT # 2.8 10*3/uL (2.3-7.9); NEUT % 50.1 % (47.0-73.0); PLATELET COUNT AUTOMATED 233 10*3/uL (130-400); WHITE BLOOD COUNT 5.7 10*3/uL (4.8-10.8)
[2020-08-06 23:32] LABS: ALBUMIN 3.3 gm/dl (3.1-4.5); ALKALINE PHOSPHATASE 52 U/L (45-117); BUN 19 mg/dl (7-24); CHLORIDE 113 mmol/L (98-107); CREATININE 0.81 mg/dL (0.55-1.02); POTASSIUM 3.5 mmol/L (3.5-5.1); SGOT/AST 51 IU/L (3-35); SGPT/ALT 80 U/L (12-78); SODIUM 145 mmol/L (136-145); TOTAL PROTEIN 7.2 gm/dL (6.4-8.2)
== END 2020-08-07 00:40 | disposition home or self-care (01) ==
LOC: ED 22:43
PROVIDERS: Internal Medicine
DX: F10.10 Alcohol abuse, uncomplicated (principal); R79.89 Other specified abnormal findings of blood chemistry; Z79.899 Other long term (current) drug therapy; Z98.890 Other specified postprocedural states; Z95.818 Presence of other cardiac implants and grafts; Y90.8 Blood alcohol level of 240 mg/100 ml or more

== ENCOUNTER → 2020-09-28 | Outpatient (CLI) | payer MEDICAID | END | disposition home or self-care (01) | LOC: RAD 13:47 | PROVIDERS: ATTEND Family Medicine | DX: R60.0 Localized edema (principal); M77.32 Calcaneal spur, left foot ==

== ENCOUNTER → 2023-09-09 | Outpatient (CLI) | payer OTHER ==
[2023-09-09 08:13] LABS: BASO % 0.2 % (0.0-1.0); EOS # 0.3 10*3/uL (0.0-0.4); EOS % 5.4 % (1.0-4.0); HEMATOCRIT 41.3 % (37.0-47.0); LYMPH # 1.2 10*3/uL (1.3-4.4); LYMPH % 23.9 % (27.0-41.0); MEAN CORPUSCULAR HGB 29.3 pg (27.0-31.0); MEAN CORPUSCULAR HGB CONC 32.9 g/dl (33.0-37.0); MEAN PLATELET VOLUME 8.8 fl (9.6-12.3); MONO # 0.5 10*3/uL (0.1-1.0); MONO % 9.8 % (3.0-9.0); NEUT % 60.3 % (47.0-73.0); PLATELET COUNT AUTOMATED 212 10*3/uL (130-400); RED BLOOD COUNT 4.64 10*6/uL (4.10-5.10); RED CELL DISTRI WIDTH 13.2 % (0-14.5)
[2023-09-09 08:24] LABS: URINE CREATININE RANDOM 82.28 mg/dL
[2023-09-09 09:09] LABS: BUN 20 mg/dl (9-23); CHLORIDE 109 mmol/L (98-107); POTASSIUM 4.3 mmol/L (3.4-5.1)
== END | disposition home or self-care (01) ==
LOC: LAB 07:36
PROVIDERS: ATTEND Internal Medicine Nephrology
DX: N18.30 Chronic kidney disease, stage 3 unspecified (principal)